=== PATIENT | female | born 1960 | race Caucasian/White ===

== ENCOUNTER 2018-10-11 14:59 | Emergency (ER) | payer BC, MEDICAID ==
[~2018-10-11] VITALS: Ht 165.1 cm; Wt 77.4 kg
--- NOTE | 2018-10-11 16:25 | NUR ---
BREAK RN'S FOR PRIMARY RN'S JACQUELIN. PT AMBULATED TO ROOM WITH STEADY GAIT. PT REPORTS "DIARRHEA FOR 3 DAYS, WAS NORMAL COLOR BUT LIQUID, BUT YESTERDAY BACK AND THICK, STOMACH HURTS, CRAMPING, NAUSEATED." DENIES VOMITING, CP, SOB, PATEL, DIZZINESS, URINARY PAIN OR URINARY DIFFICULTY. CONT PULSE OX, BP MONITORS APPLIED. VSS. A&OX4. CALL LIGHT IN REACH. FALL PRECAUTIONS IN PLACE. SIDE RAILS UPX2. DR. EGAN AT BEDSIDE FOR EVALUATION AND OCCULT RECTAL TEST.
[2018-10-11] MEDS ORDERED: ONDANSETRON 2MG/ML, 2ML IVPush ONE (16:30)
[2018-10-11] MEDS ORDERED: SODIUM CHLORIDE FLUSH 10ML SYR IVF ONE (16:30)
[2018-10-11] MEDS ORDERED: QUET25TA5 PO (16:36)
[2018-10-11] MEDS ORDERED: DISU250T2 PO (16:36)
--- NOTE | 2018-10-11 16:40 | NUR ---
PT UP AND AMBULATORY TO RESTROOM WITH STEADY GAIT FOR UA SAMPLE
--- NOTE | 2018-10-11 16:47 | NUR ---
UA COLLECTED AND SENT TO LAB. PT RESTING IN POSITION OF COMFORT. VSS. CALL LIGHT IN REACH. FAMILY AT BEDSIDE
[2018-10-11 17:00] LABS: BASOPHILS # (AUTO) 0.05 x10^3/uL (0-0.1); BASOPHILS % (AUTO) 0 % (0-1); EOSINOPHILS # (AUTO) 0.16 x10^3/uL (0-0.4); EOSINOPHILS % (AUTO) 1 % (1-7); LYMPHOCYTES # (AUTO) 3.16 x10^3/uL (1-3.4); LYMPHOCYTES % (AUTO) 28 % (22-44); MD NO; MEAN CORPUSCULAR HEMOGLOBIN 30.6 pg (27.0-34.8); MEAN CORPUSCULAR HGB CONC 33.1 g/dL (32.4-35.8); MEAN CORPUSCULAR VOLUME 92.5 fL (80-100); MEAN PLATELET VOLUME 7.8 fL (7.4-10.4); MONOCYTES # (AUTO) 0.61 x10^3/uL (0.2-0.8); MONOCYTES % (AUTO) 5 % (2-9); NEUTROPHILS % (AUTO) 65 % (42-75); PLATELET COUNT 324 x10^3/uL (130-400); RED BLOOD COUNT 4.98 x10^6/uL (3.82-5.3); RED CELL DISTRIBUTION WIDTH 14.7 % (9.6-15.2)
--- NOTE | 2018-10-11 17:05 | NUR ---
REPORT AND CARE BACK TO PRIMARY RN'S JACQUELIN
[2018-10-11 17:07] LABS: MICROSCOPIC INDICATED
[2018-10-11 17:10] LABS: INTERNATIONAL NORMALIZED RATIO 0.93 (0.93-1.1); PROTHROMBIN TIME 9.8 Seconds (9.6-11.5)
[2018-10-11 17:12] LABS: ALANINE AMINOTRANSFERASE 43 U/L (12-78); ALBUMIN 3.9 g/dL (3.4-5.0); ANION GAP 8 mmol/L (5-15); CHLORIDE 108 mmol/L (98-107); CREATININE 0.84 mg/dL (0.55-1.02)
[2018-10-11 17:14] LABS: ALKALINE PHOSPHATASE 136 U/L (45-117); BILIRUBIN,TOTAL 0.3 mg/dL (0.2-1.0)
[2018-10-11 17:14] LABS: CULTURE INDICATED? YES
[2018-10-11] MEDS ORDERED: ONDANSETRON 2MG/ML, 2ML ONE (17:30)
[2018-10-11] MEDS ORDERED: FAMOTIDINE 20 MG/2 ML ONE (17:48)
[2018-10-11] MEDS ORDERED: FAMOTIDINE 20 MG/2 ML IVPush ONE (18:00)
[2018-10-11] MEDS ORDERED: SODIUM CHLORIDE 0.9% 1,000ML IVBOLUS ONE (18:00)
--- NOTE | 2018-10-11 18:09 | NUR ---
Patient is resting comfortably in bed. Vital Signs within normal limits. Pt medicated with zofran and pepcid, denies any other needs at this time.
[2018-10-11] MEDS ORDERED: KETOROLAC 30 MG/1 ML IVPush ONE (18:30)
--- NOTE | 2018-10-11 18:59 | NUR ---
Report to [facility].
--- NOTE | 2018-10-11 19:46 | NUR ---
given dc instruction pt up ambulated to check out with family vss stable iv was out
[2018-10-11 19:47] VITALS: BP 106/68
== END 2018-10-11 19:50 | disposition home or self-care (01) ==
LOC: ED 17:06
DX: N30.00 Acute cystitis without hematuria (principal); R19.7 Diarrhea, unspecified; F17.200 Nicotine dependence, unspecified, uncomplicated; Z90.89 Acquired absence of other organs; Z90.710 Acquired absence of both cervix and uterus
CPT/HCPCS: 36415; 80053; 81001; 83690; 85025; 85610; 85730; 87077; 87086; 96361; 96374; 96375; 99283; J1885; J2405; J3490; J7030; 87186